=== PATIENT | female | born 1950 | race Caucasian/White ===

== ENCOUNTER 2020-09-21 07:46 | Day surgery (SDC) | payer OTHER ==
[2020-09-21] MEDS ORDERED: Midazolam 1 MG/ML 2 ML SDV IV ONE (07:47)
[2020-09-21] MEDS ORDERED: fentaNYL 100 MCG/2 ML SDV IV ONE (07:47)
[2020-09-21] MEDS ORDERED: Lactated Ringers 1,000 ML IV SCH (08:00)
[2020-09-21] MEDS ORDERED: Sodium Chloride 0.9% 10 ML Syringe FLUSH PRN (08:00)
[2020-09-21] MEDS ORDERED: acetaZOLAMIDE 500 MG Cap.ER PO ONE (09:30)
--- NOTE | 2020-09-21 11:07 | OR ---
DATE OF OPERATION: 09/21/2020 SURGEON: Ruthann Rodriguez MD PREOPERATIVE DIAGNOSIS: Visually significant cataract, left eye. POSTOPERATIVE DIAGNOSIS: Visually significant cataract, left eye. PROCEDURES PERFORMED: Phacoemulsification with intraocular lens placement, left eye. ASSISTANTS: None. ANESTHESIA: Local with sedation. COMPLICATIONS: None. BLOOD LOSS: None. IMPLANTS: An Marito AU00T0, 17.0 diopter lens, serial number [id number] implanted. CDE: 3.16. DESCRIPTION OF PROCEDURE: After risks and benefits were reviewed with the patient, consent was obtained in the preoperative area, and the operative eye was marked with a surgical pen. In the preoperative area, a pledget was used to dilate the pupil consisting of a mixture of phenylephrine 10%, cyclopentolate 2%, moxifloxacin 0.5%, and bupivacaine 0.75%. The patient was taken to the operating room, where a time-out was performed, and the patient was placed under monitored anesthesia care. Topical tetracaine was used for anesthesia. The operative eye was prepped and draped for ophthalmic surgery, and the microscope was brought into position and focused. A paracentesis incision was made, followed by injection of preservative-free 1% lidocaine into the anterior chamber, followed by injection of Viscoat into the anterior chamber. A microkeratome blade was used to make a corneal limbal incision temporally. A cystotome was used to make the beginning of the capsulorrhexis, which was carried around 360 degrees in a curvilinear fashion using Utrata forceps. A Slaughter cannula with BSS was used to hydrodissect and hydrodelineate the nucleus. The nucleus was removed in a divide and conquer manner using phacoemulsification. Irrigation and aspiration were used to remove the remaining cortical material. Provisc was used to inflate the capsular bag, and a pre-loaded Marito AU00T0, 17.0 diopter lens, serial number [id number] was injected into the capsular bag. A Sinskey hook was used to position and center the lens. Next, irrigation and aspiration was used to remove any remaining viscoelastic and cortical material from the anterior chamber. BSS on a cannula was used to inflate the anterior chamber and hydrate the wound. The wound was checked and found to be watertight. 1 mg of Moxifloxacin was injected into the anterior chamber. Drapes were removed and the eye was cleaned. A drop of brimonidine 0.15% and a drop of TobraDex was placed. The eye was shielded, and the patient was taken to the recovery room in stable condition. /[id number] AYDEN/LULY
== END 2020-09-21 10:12 | disposition home or self-care (01) ==
LOC: FB.SDS 07:46
PROVIDERS: ATTEND Ophthalmology
DX: E11.36 Type 2 diabetes mellitus with diabetic cataract (principal); H25.12 Age-related nuclear cataract, left eye; H35.371 Puckering of macula, right eye; E11.3291 Type 2 diabetes mellitus with mild nonproliferative diabetic retinopathy without macular edema, right eye; H04.123 Dry eye syndrome of bilateral lacrimal glands; H43.813 Vitreous degeneration, bilateral; H18.593 Other hereditary corneal dystrophies, bilateral; H52.223 Regular astigmatism, bilateral; E78.00 Pure hypercholesterolemia, unspecified; F32.9 Major depressive disorder, single episode, unspecified; M81.0 Age-related osteoporosis without current pathological fracture; F41.9 Anxiety disorder, unspecified; F41.1 Generalized anxiety disorder; E11.41 Type 2 diabetes mellitus with diabetic mononeuropathy; N95.1 Menopausal and female climacteric states; M19.041 Primary osteoarthritis, right hand; Z98.890 Other specified postprocedural states; Z79.84 Long term (current) use of oral hypoglycemic drugs; Z88.8 Allergy status to other drugs, medicaments and biological substances; Z88.2 Allergy status to sulfonamides; Z79.899 Other long term (current) drug therapy
CPT/HCPCS: 00142; 66984; A9270; J2250; J3010; J7120; V2632; 82962